=== PATIENT | male | born 1970 | race Caucasian/White ===

== ENCOUNTER 2017-04-28 22:44 | Emergency (ER) | payer MEDICAID ==
[~2017-04-28 22:44] MED LIST: ATIVAN0.5 M1 PO; IBUPROFEN400 MG PO; LEXAPRO10 MG PO
[2017-04-29 01:12] VITALS: BP 130/82
== END 2017-04-29 01:12 | disposition home or self-care (01) ==
LOC: ED 22:44
DX: R51 Headache (principal); Z88.0 Allergy status to penicillin
CPT/HCPCS: J1885

== ENCOUNTER 2019-01-24 10:51 | Emergency (ER) | payer MEDICAID ==
[~2019-01-24] VITALS: Ht 165.1 cm; Wt 86.2 kg
[2019-01-24 10:59] VITALS: Ht 165.1 cm; Wt 86.2 kg
[2019-01-24 12:35] LABS: BASOPHIL % 1.9 % (0-2); CALCIUM 9.1 mg/dL (8.5-10.1); CARBON DIOXIDE 24.1 mmol/L (21-32); CHLORIDE SERUM 107 mmol/L (98-107); CREATININE SERUM 0.9 mg/dL (0.7-1.3); GFR1 > 60 mL/min; GLUCOSE SERUM 83 mg/dL (74-106); PLATELET COUNT 194 x10^3mcL (130-400); RED CELL DISTRIBUTION WIDTH 13.4 % (11.5-14.5); SODIUM SERUM 142 mmol/L (136-145)
[2019-01-24 12:40] LABS: ALBUMIN 3.7 g/dL (3.4-5.0); ALKALINE PHOSPHATASE 52 U/L (46-116); ALT/SGPT 166 U/L (16-63); AST/SGOT 68 U/L (15-37); BILIRUBIN TOTAL 0.48 mg/dL (0.20-1.00); TOTAL PROTEIN, SERUM 6.9 g/dL (6.4-8.2)
[2019-01-24 13:51] LABS: microscopic required? NO
[2019-01-24 14:31] LABS: UA SPECIFIC GRAVITY 1.015 (1.005-1.035); urine erythrocyte NEGATIVE (NEGATIVE)
[2019-01-24 14:51] VITALS: BP 122/65
== END 2019-01-24 14:51 | disposition home or self-care (01) ==
LOC: ED 10:51
PROVIDERS: Emergency Medicine
DX: G44.209 Tension-type headache, unspecified, not intractable (principal); R53.83 Other fatigue; Z88.0 Allergy status to penicillin
CPT/HCPCS: J1885; J7030; Q0092

== ENCOUNTER 2019-03-13 22:32 | Emergency (ER) | payer SELFPAY ==
[~2019-03-13] VITALS: Ht 165.1 cm; Wt 82.6 kg
[2019-03-13 22:37] VITALS: Ht 165.1 cm; Wt 82.6 kg
[2019-03-13 23:59] LABS: BASOPHIL % 0.6 % (0-2); PLATELET COUNT 206 x10^3mcL (130-400); RED CELL DISTRIBUTION WIDTH 13.2 % (11.5-14.5)
[2019-03-14 00:09] LABS: CALCIUM 8.5 mg/dL (8.5-10.1); CARBON DIOXIDE 23.7 mmol/L (21-32); CHLORIDE SERUM 105 mmol/L (98-107); CREATININE SERUM 0.9 mg/dL (0.7-1.3); GFR1 > 60 mL/min; GLUCOSE SERUM 103 mg/dL (74-106); POTASSIUM SERUM 3.8 mmol/L (3.5-5.1); SODIUM SERUM 142 mmol/L (136-145)
[2019-03-14 00:12] LABS: ALBUMIN 3.5 g/dL (3.4-5.0); ALKALINE PHOSPHATASE 42 U/L (46-116); ALT/SGPT 141 U/L (16-63); AST/SGOT 44 U/L (15-37); BILIRUBIN TOTAL 0.6 mg/dL (0.20-1.00); TOTAL PROTEIN, SERUM 6.6 g/dL (6.4-8.2)
[2019-03-14 01:08] VITALS: BP 110/69
== END 2019-03-14 01:08 | disposition home or self-care (01) ==
LOC: ED 22:32
PROVIDERS: Emergency Medicine
DX: R07.89 Other chest pain (principal); Z88.0 Allergy status to penicillin
CPT/HCPCS: 36415; Q0092

== ENCOUNTER 2019-12-16 19:59 | Emergency (ER) | payer MEDICAID ==
[~2019-12-16] VITALS: Ht 162.6 cm; Wt 88.0 kg
[2019-12-16 20:08] VITALS: Ht 162.6 cm; Wt 88.0 kg
[2019-12-16 22:39] VITALS: BP 115/70
== END 2019-12-16 22:38 | disposition home or self-care (01) ==
LOC: ED 19:59
DX: R07.89 Other chest pain (principal); R06.02 Shortness of breath; R11.0 Nausea; R05 Cough; Z88.0 Allergy status to penicillin
CPT/HCPCS: J1885

== ENCOUNTER 2020-04-26 15:59 | Emergency (ER) | payer MEDICAID ==
[~2020-04-26] VITALS: Ht 165.1 cm; Wt 85.3 kg
[~2020-04-26 15:59] MED LIST changes: +LIPITOR20 MG GT
[2020-04-26 16:10] VITALS: Ht 165.1 cm; Wt 85.3 kg
[2020-04-26 18:26] LABS: BASOPHIL % 0.5 % (0-2); PLATELET COUNT 232 x10^3mcL (130-400); RED CELL DISTRIBUTION WIDTH 13.6 % (11.5-14.5)
[2020-04-26 18:35] LABS: AMPHETAMINE QUAL UR NONE DETECTED (See below)
[2020-04-26 18:43] LABS: CALCIUM 8.9 mg/dL (8.5-10.1); CARBON DIOXIDE 27.9 mmol/L (21-32); CHLORIDE SERUM 104 mmol/L (98-107); CREATININE SERUM 0.9 mg/dL (0.7-1.3); GFR1 > 60 mL/min; GLUCOSE SERUM 108 mg/dL (74-106); POTASSIUM SERUM 3.9 mmol/L (3.5-5.1); SODIUM SERUM 140 mmol/L (136-145)
[2020-04-26 18:47] LABS: ALBUMIN 3.5 g/dL (3.4-5.0); ALKALINE PHOSPHATASE 50 U/L (46-116); ALT/SGPT 53 U/L (16-63); AST/SGOT 21 U/L (15-37); BILIRUBIN TOTAL 0.4 mg/dL (0.20-1.00); CHOLESTEROL 164 mg/dL (<200); LIPASE 117 IU/L (73-393); TOTAL PROTEIN, SERUM 6.8 g/dL (6.4-8.2)
[2020-04-26 18:48] LABS: CHOLESTEROL/HDL RATIO 5.5; HDL CHOLESTEROL 30 mg/dL (40-60); TRIGLYCERIDES 337 mg/dL (<150)
[2020-04-26 18:54] LABS: T3 TOTAL 1.16 ng/mL
[2020-04-26 19:29] LABS: FREE T4 0.98 ng/dL (0.76-1.46); FREE THYROXINE INDEX 2.4 ug/dL (1.4-4.5)
[2020-04-26 19:31] VITALS: BP 120/70
== END 2020-04-26 19:31 | disposition home or self-care (01) ==
LOC: ED 15:59
PROVIDERS: Specialist
DX: F41.9 Anxiety disorder, unspecified (principal); Z88.0 Allergy status to penicillin
CPT/HCPCS: 83880; 84439; J1885; Q0092